=== PATIENT | female | born 1940 | race African-American/Black ===

== ENCOUNTER 2016-05-03 17:59 | Emergency (ER) | payer OTHER, BC ==
[2016-05-03 18:04] VITALS: BP 171/99; PULSE 96; TEMP 98.4; BMI 27.8
--- NOTE | 2016-05-03 19:09 | PDOC ---
History of Present Illness - General Chief Complaint: Injury Stated Complaint: FALL Time Seen by Provider: 05/03/16 18:58 History Source: Patient Exam Limitations: No Limitations - History of Present Illness Initial Comments: 05/03/16 19:11 My Chief complaint: fall twisting rt. ankle, rt. ankle pain with swelling History of present illness: Patient is a 75-year-old female with a history of hyperlipidemia, hypertension, and borderline diabetes here today after she slipped on ice twisting her right ankle. Patient has noticeable swelling to her right lateral ankle. Patient was unable to get up and walk on her ankle due to swelling and pain. Patient reports that pain is a throbbing sensation is an 8 out of 10 presently. Patient denies any other injury did hit her shoulder however she has full range of motion of her rt. shoulder in no pain presently. Denies hitting her head. Patient denies any neck pain Occurred: reports: just prior to arrival Severity: Yes: moderate Lower Extremity Pain Location: right: ankle (lateral ) Method of Injury: Yes: twisted (right lateral ankle ) Modifying Factors: improves with: immobilization Lower Ext. Injury Location - Specific Injury Location Ankle: right swelling (lateral ) Extremity Pain Location - Extremity Pain Location Extremity Pain Locations: right: ankle (lateral ) Past History - Past Medical History Home Medications: Ambulatory Orders Atorvastatin Ca [Lipitor] 20 mg PO HS 05/03/16 Hydrochlorothiazide 25 mg PO ASDIR 05/03/16 Lisinopril 10 mg PO ASDIR 05/03/16 Metformin HCl 500 mg PO ASDIR 05/03/16 Sitagliptin Phosphate [Januvia -] 100 mg PO ASDIR 05/03/16 Diabetes: Yes (borderline) HTN: Yes Hypercholesterolemia: Yes - Immunization History Immunization Up to Date: Yes - Psycho/Social/Smoking Cessation Hx Anxiety: No Suicidal Ideation: No Smoking History: Never smoked Information on smoking cessation initiated: No Hx Alcohol Use: No Drug/Substance Use Hx: No Review of Systems - Review of Systems Able to Perform ROS?: Yes Constitutional: No: Symptoms Reported HEENTM: No: Symptoms Reported Respiratory: No: Symptoms reported Cardiac (ROS): No: Symptoms Reported ABD/GI: No: Symptoms Reported : No: Symptoms Reported Musculoskeletal: Yes: Joint Pain (rt. lateral ankle pain ), Joint Swelling (rt. lateral ankle ) Integumentary: No: Symptoms Reported Neurological: No: Symptoms reported *Physical Exam - Vital Signs Last Vital Signs Temp Pulse Resp BP Pulse Ox 98.4 F 96 H 20 171/99 98 05/03/16 18:02 05/03/16 18:02 05/03/16 18:02 05/03/16 18:02 05/03/16 18:02 - Physical Exam General Appearance: Yes: Appropriately Dressed Vascular Pulses: Dorsalis-Pedis (R): 4+ Extremity: positive: Normal Capillary Refill, Normal Range of Motion (rt. foot/ ankle ), Tender (rt. lateral ankle ), Swelling (right lateral ankle) Integumentary: positive: Normal Color, Swelling (rt. lateral ankle ) Neurologic: positive: Alert, Normal Response, Respond to painful stimul (rt. foot/ankle ), Responsive. negative: Numbness, Sensory Deficit Deep Tendon Reflexes: Ankle (R): 3+ (no induration ) Procedures - Consent Consent obtained: From Patient - Splinting Splint Location: Right: Ankle Pre-Proc Neuro Vasc Exam: normal (lateral) Hand-Made Type: orthoglass Splint Type: Yes: Posterior (right ) Post-Proc Neuro Vasc Exam: normal Jose D Bandage: 3" Sling: No Complications: No Progress: 05/03/16 19:45 post op shoe given and crutches for ambulation ED Treatment Course - RADIOLOGY Radiology Studies Ordered: Category Date Time Status ANKLE & FOOT-RIGHT* [RAD] Stat Radiology 05/03/16 19:03 Ordered Medical Decision Making - Medical Decision Making 05/03/16 19:13 Patient is a 75-year-old female with a history of hyperlipidemia, hypertension, and borderline diabetes here today after she slipped on ice twisting her right ankle. Patient has noticeable swelling to her right lateral ankle. Patient was unable to get up and walk on her ankle due to swelling and pain. Patient reports that pain is a throbbing sensation is an 8 out of 10 presently. Patient denies any other injury did hit her shoulder however she has full range of motion of her rt. shoulder in no pain presently. Denies hitting her head. Patient denies any neck pain. rt. Ankle swelling and pain rule out fracture PLAN: pt. does not want pain medication xray rt. ankle/foot spiral fracture slightly displaced distal fibia orthoglass posterior splint applied crutches given for ambulation to use at home and tomorrow instruction given here with demonstrated ability to use pt. goes to [facility] with Dr. Waterman or Dr. MEMBRENO 05/03/16 19:46 05/04/16 18:11 *DC/Admit/Observation/Transfer Diagnosis at time of Disposition: Closed fracture of distal end of right fibula Qualifiers: Encounter type: initial encounter Fracture morphology: other fracture Qualified Code(s): S82.831A - Other fracture of upper and lower end of right fibula, initial encounter for closed fracture - Discharge Dispostion Disposition: HOME Condition at time of disposition: Stable - Referrals Referrals: Lissette Retana [Primary Care Provider] - Genaro Membreno MD [Staff Physician] - - Patient Instructions Additional Instructions: Follow-up with your orthopedist tomorrow at [facility] Advil or Aleve as directed by party plan sales unit advisor [id number] right leg as much as possible and apply ice to lateral aspect every hour or 2 for 10-15 minutes and keep Ortho-Glass splint on Use crutches for ambulation at home and tomorrow Return to emergency room if any discoloration of your right toes or coldness of right foot or numbness patient is understanding of discharge instructions and all questions were answered
== END 2016-05-03 20:29 | disposition home or self-care (01) ==
LOC: JERFT 17:59
PROC: 2W3LX1Z Immobilization of Right Lower Extremity using Splint (ICD-10-PCS; principal; 2016-05-03)
DX: S82.831A Other fracture of upper and lower end of right fibula, initial encounter for closed fracture (principal); W00.2XXA Other fall from one level to another due to ice and snow, initial encounter; Y93.01 Activity, walking, marching and hiking; Y92.89 Other specified places as the place of occurrence of the external cause; I10 Essential (primary) hypertension; E11.9 Type 2 diabetes mellitus without complications; Z79.84 Long term (current) use of oral hypoglycemic drugs; E78.00 Pure hypercholesterolemia, unspecified
CPT/HCPCS: 73610-TC-RT; 73630-TC-RT; 99281-25